=== PATIENT | female | born 1965 | race Caucasian/White ===

== ENCOUNTER → 2017-02-28 | Outpatient (CLI) | payer OTHER | LOC: CIMAGING 15:07 | PROVIDERS: ATTEND Family Medicine | DX: M25.572 Pain in left ankle and joints of left foot (principal) | CPT/HCPCS: 73660-PO ==

== ENCOUNTER → 2017-04-01 | Outpatient (CLI) | payer OTHER | LOC: CIMAGING 09:04 | PROVIDERS: ATTEND Family Medicine | DX: Z12.31 Encounter for screening mammogram for malignant neoplasm of breast (principal); Z80.3 Family history of malignant neoplasm of breast ==

== ENCOUNTER → 2017-10-17 | Outpatient (CLI) | payer OTHER | LOC: CIMAGING 11:25 | PROVIDERS: ATTEND Family Medicine | DX: M79.671 Pain in right foot (principal); Z87.81 Personal history of (healed) traumatic fracture | CPT/HCPCS: 73630-PO ==